=== PATIENT | female | born 1970 | race Caucasian/White ===

== ENCOUNTER 2020-02-13 13:55 | Emergency (ER) | payer SELFPAY ==
[~2020-02-13] VITALS: Ht 165.1 cm; Wt 79.5 kg
--- NOTE | 2020-02-13 14:18 | ED Chest Pain ---
General Chief Complaint: Cardiac/General Problems Stated Complaint: HYPERTENSION Source: patient Exam Limitations: no limitations History of Present Illness Date Seen by Provider: February 13, 2020 Time Seen by Provider: 14:05 Initial Comments The patient is a pleasant 49-year-old female who presents for evaluation of hypertension, fatigue, and some chest discomfort. She states that she felt very tired at home and checked her blood pressure and her systolic was approximately 245. She then noticed some substernal chest burning sensation that radiated to the left upper arm. She reports a history only of hypertension. She is alert and oriented 4, calm, and appears to be in no distress this time. She denies nausea or vomiting, diaphoresis, palpitations, fevers or chills, cough, shortness of breath, or syncope. She takes lisinopril for hypertension. Her blood pressure upon arrival is 135/92. 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 She is not currently on any anticoagulation. Timing/Duration: 1-3 hours Severity/Quality: mild Location: substernal Radiation: arms (left upper) Activities at Onset: none ASA po PROJECTION ENGINEER: No NTG SL PROJECTION ENGINEER: No Associated Symptoms: weakness Allergies and Home Medications Allergies Coded Allergies: No Known Drug Allergies (Unverified , 02/13/20) Patient Home Medication List Home Medication List Reviewed: Yes Review of Systems Review of Systems Constitutional: weakness EENTM: No Symptoms Reported Respiratory: No Symptoms Reported Cardiovascular: Chest Pain Gastrointestinal: No Symptoms Reported Genitourinary: No Symptoms Reported Musculoskeletal: no symptoms reported Skin: no symptoms reported Psychiatric/Neurological: No Symptoms Reported Endocrine: No Symptoms Reported Hematologic/Lymphatic: No Symptoms Reported All Other Systems Reviewed Negative Unless Noted: Yes Past Fckwmyl-Neghew-Gmirzm Hx Past Med/Social Hx: Reviewed Nursing Past Med/Soc Hx Patient Social History Recent Foreign Travel: No Contact w/Someone Who Travel: No Physical Exam Vital Signs Vital Signs - First Documented 02/13/20 14:15 Temp 37.1 Pulse 95 Resp 18 B/P (MAP) 135/92 (106) Pulse Ox 100 O2 Delivery Room Air Capillary Refill : Height, Weight, BMI Height: '" Weight: lbs. oz. kg; BMI Method: General Appearance: No Apparent Distress, WD/WN HEENT: PERRL/EOMI, Pharynx Normal Neck: Full Range of Motion, Non Tender, Supple Respiratory: Lungs Clear, Normal Breath Sounds, No Accessory Muscle Use, No Respiratory Distress Cardiovascular: Regular Rate, Rhythm, No Edema, No JVD Gastrointestinal: Normal Bowel Sounds, No Pulsatile Mass, Non Tender, Soft Extremity: Normal Capillary Refill, Normal Inspection, Non Tender, Calf Tenderness (left) Neurologic/Psychiatric: Alert, Oriented x3, No Motor/Sensory Deficits, Normal Mood/Affect Skin: Normal Color, Warm/Dry Progress/Results/Core Measures Results/Orders Lab Results Laboratory Tests Test 02/13/20 14:22 02/13/20 17:08 Range/Units White Blood Count 9.0 4.3-11.0 10^3/uL Red Blood Count 4.69 4.35-5.85 10^6/uL Hemoglobin 15.5 11.5-16.0 G/DL Hematocrit 44 35-52 % Mean Corpuscular Volume 94 80-99 FL Mean Corpuscular Hemoglobin 33 25-34 PG Mean Corpuscular Hemoglobin Concent 35 32-36 G/DL Red Cell Distribution Width 11.7 10.0-14.5 % Platelet Count 338 130-400 10^3/uL Mean Platelet Volume 9.2 7.4-10.4 FL Neutrophils (%) (Auto) 51 42-75 % Lymphocytes (%) (Auto) 36 12-44 % Monocytes (%) (Auto) 9 0-12 % Eosinophils (%) (Auto) 3 0-10 % Basophils (%) (Auto) 1 0-10 % Neutrophils # (Auto) 4.6 1.8-7.8 X 10^3 Lymphocytes # (Auto) 3.2 1.0-4.0 X 10^3 Monocytes # (Auto) 0.9 0.0-1.0 X 10^3 Eosinophils # (Auto) 0.3 0.0-0.3 10^3/uL Basophils # (Auto) 0.1 0.0-0.1 10^3/uL Sodium Level 145 135-145 MMOL/L Potassium Level 3.9 3.6-5.0 MMOL/L Chloride Level 104 98-107 MMOL/L Carbon Dioxide Level 29 21-32 MMOL/L Anion Gap 12 5-14 MMOL/L Blood Urea Nitrogen 13 7-18 MG/DL Creatinine 0.83 0.60-1.30 MG/DL Estimat Glomerular Filtration Rate > 60 BUN/Creatinine Ratio 16 Glucose Level 83 70-105 MG/DL Calcium Level 9.7 8.5-10.1 MG/DL Corrected Calcium 9.5 8.5-10.1 MG/DL Magnesium Level 2.1 1.6-2.4 MG/DL Total Bilirubin 0.3 0.1-1.0 MG/DL Aspartate Amino Transf (AST/SGOT) 21 5-34 U/L Alanine Aminotransferase (ALT/SGPT) 28 0-55 U/L Alkaline Phosphatase 51 40-136 U/L Troponin I < 0.30 < 0.30 <0.30 NG/ML Pro-B-Type Natriuretic Peptide 140.9 H <75.0 PG/ML Total Protein 7.4 6.4-8.2 GM/DL Albumin 4.2 3.2-4.5 GM/DL My Orders Orders - BELINDA ROLLINS DO Cbc With Automated Diff (02/13/20 14:09) Magnesium (02/13/20 14:09) Chest 1 View Ap/Pa Only (02/13/20 14:09) Ekg Tracing (02/13/20 14:09) Comprehensive Metabolic Panel (02/13/20 14:09) O2 (02/13/20 14:09) Monitor-Rhythm Ecg Trace Only (02/13/20 14:09) Ed Iv/Invasive Line Start (02/13/20 14:09) Troponin I Fs (02/13/20 14:09) Probnp Fs (02/13/20 14:09) Us Venous Lower Ext Lt (02/13/20 14:30) Troponin I Fs (02/13/20 17:00) Vital Signs/I&O 02/13/20 14:15 Temp 37.1 Pulse 95 Resp 18 B/P (MAP) 135/92 (106) Pulse Ox 100 O2 Delivery Room Air Progress Progress Note : Progress Note @1755 - Patient updated on lab and imaging results which are acutely un remarkable. She states that she is feeling back to normal, has no complaints, and her blood pressure is improved. Advised the patient to follow up with her PCP in the next 1-2 days and to return to the emergency Department immediately for new or worsening symptoms. Comment EKG@1418 - Normal sinus rhythm, rate of 83, normal axis, no acute ischemic findings noted, no STEMI, reviewed and interpreted by myself Diagnostic Imaging Diagonstic Imaging: Xray Comments [facility], [place] NAME: [facility] REC#: [id number] PT STATUS: REG ER : 1970 PHYSICIAN: BELINDA ROLLINS DO ADMIT DATE: 02/13/20/ER FS Signed Date of Exam:02/13/20 US VENOUS LOWER EXT LT PROCEDURE: US left lower extremity venous. TECHNIQUE: Multiple real-time grayscale images were obtained over the left lower extremity in various projections. Additional duplex Doppler and color Doppler images were also obtained. INDICATION: Left leg pain and swelling EXAMINATION: Grayscale and color Doppler evaluation of the deep veins of the left lower extremity were performed with waveform analysis. FINDINGS: Continuous venous flow is present. No intraluminal filling defect is identified. There is normal compressibility and response to augmentation. No abnormal perivascular fluid collection is identified. IMPRESSION: No ultrasound evidence of left lower extremity deep venous thrombosis. Dictated by: Dictated on workstation # [id number] Dict: 02/13/20 1454 Trans: 02/13/20 1455 [id number] Interpreted by: HERNESTO SHELLEY MD Electronically signed by: HERNESTO SHELLEY MD 02/13/20 1455 Departure Impression Primary Impression: Hypertension Additional Impression: Chest discomfort Disposition: 01 HOME, SELF-CARE Condition: Stable Departure-Patient Inst. Decision time for Depature: 17:57 Referrals: NO,LOCAL PHYSICIAN (PCP/Family) Primary Care Physician Patient Instructions: Chest Pain (DC), High Blood Pressure in Adults Add. Discharge Instructions: Follow-up with your doctor in the next 1-2 days regarding her blood pressure. He should also discuss having a stress test with your doctor. Return to the emergency Department immediately for new or worsening symptoms. BELINDA ROLLINS DO February 13, 2020 14:18
[2020-02-13 14:42] LABS: BASOPHILS % (AUTO) 1 % (0-10); EOSINOPHILS % (AUTO) 3 % (0-10); HEMATOCRIT 44 % (35-52); HEMOGLOBIN 15.5 G/DL (11.5-16.0); LYMPHOCYTES % (AUTO) 36 % (12-44); MEAN CORPUSCULAR HEMOGLOBIN 33 PG (25-34); MEAN CORPUSCULAR HGB CONC 35 G/DL (32-36); MEAN CORPUSCULAR VOLUME 94 FL (80-99); MEAN PLATELET VOLUME 9.2 FL (7.4-10.4); NEUTROPHILS % (AUTO) 51 % (42-75); PLATELET COUNT 338 10^3/uL (130-400); RED CELL DISTRIBUTION WIDTH 11.7 % (10.0-14.5)
[2020-02-13 14:43] LABS: BASOPHILS # (AUTO) 0.1 10^3/uL (0.0-0.1); EOSINOPHILS # (AUTO) 0.3 10^3/uL (0.0-0.3); LYMPHOCYTES # (AUTO) 3.2 X 10^3 (1.0-4.0); MONOCYTES # (AUTO) 0.9 X 10^3 (0.0-1.0); MONOCYTES % (AUTO) 9 % (0-12); NEUTROPHILS # (AUTO) 4.6 X 10^3 (1.8-7.8)
--- NOTE | 2020-02-13 14:51 | Diagnostic Imaging Report ---
INDICATION: Burning in the chest and pain going into left arm. TIME OF EXAM: 2:33 PM No prior studies are available for comparison. There is some scarring in the left lung base. Surgical clips overlying the heart. No infiltrates are seen. There is no effusion or pneumothorax. IMPRESSION: No acute cardiopulmonary process is detected. Dictated by: Dictated on workstation # [id number]
--- OUTSIDE RECORDS SUMMARY | 2020-02-13 14:55 | XMS REPORT ---
Author Author Meredith Elliott [facility] Address [address] [place] [address] Care Team Providers Care Cardiovascular Physician Assistant Name Role Phone Carmenza Elliott Unavailable PROBLEMS Type Condition ICD9-CM Code QFY30-[id number] Code Onset Dates Condition S tatus SNOMED Code Problem HTN (hypertension) I10 Active 3 3763666 Problem Depression F32.9 Active 78624434 Problem Hyperlipidemia E78.5 Active 27222 004 Problem Macrocytosis D75.89 Active 8850286 00 Problem Anxiety F41.9 Active 54694367 Problem Allergic rhinitis J30.9 Active 61 879856 ALLERGIES Unknown Allergies SOCIAL HISTORY No smoking Hx information available PLAN OF CARE VITAL SIGNS MEDICATIONS Unknown Medications RESULTS No Results PROCEDURES No Known procedures IMMUNIZATIONS No Known Immunizations
--- OUTSIDE RECORDS SUMMARY | 2020-02-13 14:55 | XMS REPORT ---
Author Author Meredith Elliott [facility] Address [address] [place] [address] Care Team Providers Care Sales Engagement Manager Name Role Phone JosephCarmenza michael Unavailable PROBLEMS Type Condition ICD9-CM Code FFB34-SH Code Onset Dates Condition S tatus SNOMED Code Problem HTN (hypertension) I10 Active 3 9132582 Problem Depression F32.9 Active 91816317 Problem Hyperlipidemia E78.5 Active 15063 004 Problem Macrocytosis D75.89 Active 3458789 00 Problem Anxiety F41.9 Active 57145075 Problem Allergic rhinitis J30.9 Active 61 908872 ALLERGIES No Information ENCOUNTERS Encounter Location Date Diagnosis [address] [id number] [id number] Dec, [address] [id number] [id number] Feb, H. pylori infection A04.[address] [id number] [id number] Feb, Abdominal pain R10.9 ; Hematemesis K92.0 and HTN (hypertension) I10 [address] [id number] [id number] January, [address] [id number][place] [id number] January, Well adult Z00.00 ; Screening for breast cancer Z12.39 ; Screening for cervical cancer Z12.4 ; Dysmenorrhea, unspecified N94.6 ; Depression F32.9 ; Anxiety F41.9 and Allergic rhinitis J30.9 IMMUNIZATIONS No Known Immunizations SOCIAL HISTORY Never Assessed REASON FOR VISIT PLAN OF CARE VITAL SIGNS MEDICATIONS Unknown Medications RESULTS No Results PROCEDURES No Known procedures INSTRUCTIONS MEDICATIONS ADMINISTERED No Known Medications MEDICAL (GENERAL) HISTORY Type Description Date Medical History HTN Medical History Acute Asthma Medical History High Blood Pressure Surgical History 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
--- NOTE | 2020-02-13 14:56 | Diagnostic Imaging Report ---
PROCEDURE: US left lower extremity venous. TECHNIQUE: Multiple real-time grayscale images were obtained over the left lower extremity in various projections. Additional duplex Doppler and color Doppler images were also obtained. INDICATION: Left leg pain and swelling EXAMINATION: Grayscale and color Doppler evaluation of the deep veins of the left lower extremity were performed with waveform analysis. FINDINGS: Continuous venous flow is present. No intraluminal filling defect is identified. There is normal compressibility and response to augmentation. No abnormal perivascular fluid collection is identified. IMPRESSION: No ultrasound evidence of left lower extremity deep venous thrombosis. Dictated by: Dictated on workstation # [id number]
[2020-02-13 15:02] LABS: CHLORIDE 104 MMOL/L (98-107); POTASSIUM 3.9 MMOL/L (3.6-5.0); SODIUM 145 MMOL/L (135-145)
[2020-02-13 15:03] LABS: ALANINE AMINOTRANSFERASE 28 U/L (0-55); ALKALINE PHOSPHATASE 51 U/L (40-136); BILIRUBIN,TOTAL 0.3 MG/DL (0.1-1.0); BUN/CREATININE RATIO 16; CALCIUM 9.7 MG/DL (8.5-10.1); CARBON DIOXIDE 29 MMOL/L (21-32); CREATININE SERUM 0.83 MG/DL (0.60-1.30); GFR ESTIMATED > 60; GLUCOSE 83 MG/DL (70-105); MAGNESIUM 2.1 MG/DL (1.6-2.4); TOTAL PROTEIN 7.4 GM/DL (6.4-8.2)
[2020-02-13 15:05] LABS: ALBUMIN 4.2 GM/DL (3.2-4.5)
[2020-02-13 18:05] VITALS: BP 135/92
== END 2020-02-13 18:05 | disposition home or self-care (01) ==
LOC: ER FS 13:57
DX: I10 Essential (primary) hypertension (principal); R07.89 Other chest pain
CPT/HCPCS: 36415; 71045; 80053; 83735; 83880; 84484; 85025; 93005; 93041